=== PATIENT | female | born 1985 | race Caucasian/White ===

== ENCOUNTER 2019-05-30 18:21 | Emergency (ER) | payer SELFPAY ==
[~2019-05-30] VITALS: Ht 157.5 cm; Wt 79.4 kg
[2019-05-30] MEDS ORDERED: PANTOPRAZOLE 40 MG 10ML VIAL IV ONE (19:39)
[2019-05-30] MEDS ORDERED: MORPHINE SULFATE 2 MG/ML SYR 1ML IV ONE (19:39)
[2019-05-30] MEDS ORDERED: ONDANSETRON HCL INJ 2MG/ML 2ML 2 MG/ML VIAL IV ONE (19:39)
[2019-05-30 19:40] LABS: BILIRUBIN,URINE NEGATIVE (NEGATIVE); CLARITY,URINE SL CLOUDY (CLEAR); COLOR,URINE YELLOW (YELLOW); KETONES,URINE NEGATIVE (NEGATIVE); LEUKOCYTE ESTERASE ,URINE TRACE (NEGATIVE); NITRITE,URINE NEGATIVE (NEGATIVE); PROTEIN,URINE DIPSTICK NEGATIVE (NEGATIVE); URINE UROBILINOGEN 0.2 mg/dL (0.2 - 1)
[2019-05-30 19:49] LABS: PREGNANCY TEST, URINE NEGATIVE (NEGATIVE)
[2019-05-30 19:50] LABS: BASOPHILS # (AUTO) 0.1 (0.0-0.1); BASOPHILS % 0.4 % (0.0-1.0); EOSINOPHILS # (AUTO) 0.6 (0.0-0.4); EOSINOPHILS % 5.4 % (0.0-6.0); HEMATOCRIT 36.2 % (34.2-44.1); HEMOGLOBIN 11.5 g/dL (12.0-16.0); LYMPHOCYTES # (AUTO) 2.6 (1.0-3.2); LYMPHOCYTES % 22.1 % (18.0-39.1); MEAN CORPUSCULAR HEMOGLOBIN 27.4 pg (28-32); MEAN CORPUSCULAR HGB CONC 31.8 g/dL (31-35); MEAN CORPUSCULAR VOLUME 86.4 fL (81-99); MONOCYTES % 8.8 % (4.4-11.3); NEUTROPHILS # (AUTO) 7.4 (2.1-6.9); NEUTROPHILS % 62.9 % (38.7-80.0); PLATELET COUNT 354 x10e3/uL (140-360); RED BLOOD COUNT 4.19 x10e6/uL (3.6-5.1); RED CELL DISTRIBUTION WIDTH 14.3 % (11.7-14.4)
[2019-05-30 20:00] LABS: INR 0.91; PROTHROMBIN TIME 12.7 seconds (11.9-14.5)
[2019-05-30 20:01] LABS: PARTIAL THROMBOPLASTIN TIME 37.6 seconds (23.8-35.5)
[2019-05-30 20:06] LABS: MAGNESIUM 2.2 MG/DL (1.3-2.1)
[2019-05-30 20:08] LABS: ALANINE AMINOTRANSFERASE 11 IU/L (0-55); ALBUMIN 3.5 g/dL (3.5-5.0); ALBUMIN/GLOBULIN RATIO 0.9 (0.8-2.0); ALKALINE PHOSPHATASE 76 IU/L (40-150); ANION GAP 11.7 mmol/L (8-16); BLOOD UREA NITROGEN 14 mg/dL (7-26); BUN/CREATININE RATIO 21 (6-25); CALCIUM 9.3 mg/dL (8.4-10.2); CARBON DIOXIDE 26 mmol/L (22-29); CHLORIDE 104 mmol/L (98-107); CREATININE, SERUM 0.66 mg/dL (0.57-1.11); EST GLOMERULAR FILTRATION RATE > 60 ML/MIN (60-); GLUCOSE 82 mg/dL (74-118); POTASSIUM 3.7 mmol/L (3.5-5.1); SODIUM 138 mmol/L (136-145)
[2019-05-30] MEDS ORDERED: PANTOPRAZOLE 40 MG 10ML VIAL ONE (20:19)
[2019-05-30 20:22] LABS: BACTERIA,URINE FEW /HPF; EPITHELIAL CELLS,URINE MODERATE /LPF
--- NOTE | 2019-05-30 21:36 | Diagnostic Imaging Report ---
EXAMINATION: PA and lateral views of the chest. COMPARISON: None CLINICAL HISTORY: Coughing up blood when blowing nose, DISCUSSION: Lines/tubes: None. Lungs: Lungs are well-inflated. Questionable opacity in the retrosternal space versus summation of vessel shadows, noted on the lateral view. Lungs are otherwise clear. Pleura: There is no pleural effusion or pneumothorax. Heart and mediastinum: Cardiomediastinal silhouette is unremarkable. Pulmonary vasculature is normal. Bones and soft tissues: No acute bony abnormalities. IMPRESSION: Questionable opacity in the retrosternal space versus summation of vessels shadows seen on the lateral view. Pneumonia is a diagnostic consideration in the appropriate clinical setting. Signed by: Dr. Mauro Kennedy M.D. on 05/30/2019 9:33 PM
--- NOTE | 2019-05-30 21:42 | Diagnostic Imaging Report ---
EXAMINATION: CT of the abdomen and pelvis with contrast. TECHNIQUE: Spiral CT images of the abdomen and pelvis were performed from the lung bases to the lesser trochanters after the intravenous administration of 100 cc of Isovue 370 and the oral administration of water. Coronal and sagittal reformatted images were obtained. COMPARISON: None. CLINICAL HISTORY:Right lower quadrant abdominal pain for several weeks DISCUSSION: ABDOMEN/PELVIS: LOWER THORAX:Unremarkable. HEPATOBILIARY: No focal hepatic lesions. Mild dilation of the central intrahepatic bile ducts and common bile duct, which measures approximately 10 mm at the farooq hepatis. No radiopaque intraluminal filling defects. GALLBLADDER: Cholecystectomy clips SPLEEN: No splenomegaly. PANCREAS: No focal masses or ductal dilatation. ADRENALS: No adrenal nodules. KIDNEYS/URETERS: No hydronephrosis, stones, or solid mass lesions. PELVIC ORGANS/BLADDER: Bladder is unremarkable. Uterus is unremarkable. No adnexal masses. Bilateral tubal ligation clips PERITONEUM/RETROPERITONEUM: No free air or fluid. LYMPH NODES: No intra-abdominal, retroperitoneal, pelvic or inguinal lymphadenopathy. VESSELS: The celiac trunk,superior and inferior mesenteric and bilateral renal arteries are patent The portal, superior mesenteric and splenic veins are patent. GI TRACT: No bowel dilation or evidence of obstruction. No pericecal or periappendiceal inflammatory changes. Appendix is well identified and normal in caliber. BONES AND SOFT TISSUE: No bony destructive lesions. No soft tissue abnormalities. IMPRESSION: 1. No acute abdominal pelvic abnormalities. Specifically, no acute abnormal findings in the right lower quadrant to explain the patient's pain. 2. Mild dilation of the central intrahepatic bile ducts and common bile duct, likely reflecting post cholecystectomy status. Signed by: Dr. Mauro Kennedy M.D. on 05/30/2019 9:39 PM
[2019-05-31] MEDS ORDERED: IOPAMIDOL 370 MG/ML 200 ML INFUS..BTL INJ ONE (06:36)
[2019-05-31] MEDS ORDERED: SODIUM CHLORIDE 0.9% 50ML 50 ML ONE (06:36)
== END 2019-05-30 22:51 | disposition home or self-care (01) ==
LOC: ER 18:21
DX: R10.84 Generalized abdominal pain (principal); R11.0 Nausea; R05 Cough; J15.9 Unspecified bacterial pneumonia; K29.00 Acute gastritis without bleeding; N30.91 Cystitis, unspecified with hematuria
CPT/HCPCS: 36415; 71046; 74177; 80053; 81001; 81025; 82150; 83690; 83735; 85025; 85610; 85730; 99284; C9113; J2270; J2405

== ENCOUNTER 2019-11-09 21:24 | Emergency (ER) | payer OTHER ==
[~2019-11-09] VITALS: Ht 157.5 cm; Wt 79.4 kg
--- OUTSIDE RECORDS SUMMARY | 2019-11-09 21:26 | XMS REPORT ---
Author Author [facility] Address Unknown Phone Unavailable Care Team Providers Care Hedis Abstractor Name Role Phone Lori RACHEL Unavailable Unavailable Problems This patient has no known problems. Allergies, Adverse Reactions, Alerts This patient has no known allergies or adverse reactions. Medications This patient has no known medications. Results Test Description Test Time Test Comments Text Results Atomic Results Result Comments CT ABDOMEN/PELVIS W 2019-05-30 21:34:00 [place] [address] Patient Name: RADHA MOCK MR #: [id number] : 1985 Age/Sex: 33/F Req #: [id number] Adm Physician: Ordered by: MANE RACHEL MD Report #: [id number] Location: ER Room/Bed: Procedure: [id number] CT/CT ABDOMEN/PELVIS W Exam Date: 05/30/19 Exam Time: 2050 REPORT STATUS: Signed EXAMINATION: CT of the abdomen and pelvis with contras t. TECHNIQUE: Spiral CT images of the abdomen and pelvis were performed from the lung bases to the lesser trochanters after the intravenous administration of 100 cc of Isovue 370 and the oral administration of water. Coronal and sagittal reformatted images were obtained. COMPARISON: None. CLINICAL HISTORY:Right lower quadrant abdominal pain for several weeks DISCUSSION: ABDOMEN/PELVIS: LOWER THORAX:Unremarkable. HEPATOBILIARY: No focal hepatic lesions. Mild dilation of the central intrahepatic bile ducts and common bile duct, which measures approximately 10 mm at the farooq hepatis. No radiopaque intraluminal filling defects. GALLBLADDER: Cholecystectomy clips SPLEEN: No splenomegaly. PANCREAS: No focal masses or ductal dilatation. ADRENALS: No adrenal nodules. KIDNEYS/URETERS: No hydronephrosis, stones, or solid mass lesions. PELVIC ORGANS/BLADDER: Bladder is unremarkable. Uterus is unremarkable. No adnexal masses. Bilateral tubal ligation clips PERITONEUM/RETROPERITONEUM: No free air or fluid. LYMPH NODES: No intra-abdominal, retroperitoneal, pelvic or inguinal lymphadenopathy. VESSELS: The celiac trunk,superior and inferior mesenteric and bilateral renal arteries are patent The portal, superior mesenteric and splenic veins are patent. GI TRACT: No bowel dilation or evidence of obstruction. No pericecal or periappendiceal inflammatory changes. Appendix is well identified and normal in caliber. BONES AND SOFT TISSUE: No bony destructive lesions. No soft tissue abnormalities. IMPRESSION: 1. No acute abdominal pelvic abnormalities. Specifically, no acute abnormal findings in the right lower quadrant to explain the patient's pain. 2. Mild dilation of the central intrahepatic bile ducts and common bile duct, likely reflecting post cholecystectomy status. Signed by: Dr. Joyce Kennedy M.D. on 05/30/2019 9:39 PM Dictated By: JOYCE KENNEDY MD 38 Transcribed By: ELENI on 05/30/192138 COPY TO: MANE RACHEL MD CHEST 2 VIEWS 2019-05-30 21:31:00 [place] [address] Patient Name: RADHA MOCK MR #: [id number] : 1985 Age/Sex: 33/F Req #: [id number] Adm Physician: Ordered by: MANE RACHEL MD Report #: [id number] Location: ER Room/Bed: Procedure: [id number] DX/CHEST 2 VIEWS Exam Date: 05/30/19 Exam Time: 2057 REPORT STATUS: Signed EXAMINATION: PA and lateral views of the chest. COMP ARISON: None CLINICAL HISTORY: Coughing up blood when blowing nose, DISCUSSION: Lines/tubes: None. Lungs: Lungs are well-inflated. Questionable opacity in the retrosternal space versus summation of vessel shadows, noted on the lateral view. Lungs are otherwise clear. Pleura: There is no pleural effusion or pneumothorax. Heart and mediastinum: Cardiomediastinal silhouette is unremarkable. Pulmonary vasculature is normal. Bones and soft tissues: No acute bony abnormalities. IMPRESSION: Questionable opacity in the retrosternal space versus summation of vessels shadows seen on the lateral view. Pneumonia is a diagnostic consideration in the appropriate clinical setting. Signed by: Dr. Joyce Kennedy M.D. on 05/30/2019 9:33 PM Dictated By: JOYCE KENNEDY MD 32 Transcribed By: ELENI on 05/30/192132 COPY TO: MANE RACHEL MD
[2019-11-09 21:51] LABS: BASOPHILS # (AUTO) 0.1 (0.0-0.1); BASOPHILS % 0.5 % (0.0-1.0); EOSINOPHILS # (AUTO) 0.5 (0.0-0.4); EOSINOPHILS % 4.6 % (0.0-6.0); HEMOGLOBIN 11.2 g/dL (12.0-16.0); LYMPHOCYTES # (AUTO) 2.7 (1.0-3.2); LYMPHOCYTES % 27.8 % (18.0-39.1); MEAN CORPUSCULAR HEMOGLOBIN 27.9 pg (28-32); MEAN CORPUSCULAR VOLUME 87.1 fL (81-99); MONOCYTES # (AUTO) 0.8 (0.2-0.8); MONOCYTES % 8.3 % (4.4-11.3); NEUTROPHILS # (AUTO) 5.7 (2.1-6.9); NEUTROPHILS % 58.6 % (38.7-80.0); PLATELET COUNT 330 x10e3/uL (140-360); RED BLOOD COUNT 4.02 x10e6/uL (3.6-5.1); RED CELL DISTRIBUTION WIDTH 13.5 % (11.7-14.4)
[2019-11-09 22:09] LABS: ALANINE AMINOTRANSFERASE 14 IU/L (0-55); ALBUMIN 3.2 g/dL (3.5-5.0); ALKALINE PHOSPHATASE 65 IU/L (40-150); ANION GAP 10.1 mmol/L (8-16); BLOOD UREA NITROGEN 10 mg/dL (7-26); BUN/CREATININE RATIO 15 (6-25); CALCIUM 8.2 mg/dL (8.4-10.2); CARBON DIOXIDE 27 mmol/L (22-29); CHLORIDE 106 mmol/L (98-107); CREATINE KINASE 58 IU/L (29-168); CREATININE, SERUM 0.68 mg/dL (0.57-1.11); EST GLOMERULAR FILTRATION RATE > 60 ML/MIN (60-); GLUCOSE 100 mg/dL (74-118); POTASSIUM 3.1 mmol/L (3.5-5.1); SODIUM 140 mmol/L (136-145)
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
--- NOTE | 2019-11-09 22:59 | Diagnostic Imaging Report ---
EXAMINATION: CT of the chest with contrast, PE protocol. TECHNIQUE: Spiral CT images of the chest were performed from the lung apices through the level of the adrenal glands after the IV administration of 100 cc of Isovue 370. Thin section reconstructions were obtained with special concentration on the pulmonary arteries. COMPARISON: Chest radiograph 05/30/2019 CLINICAL HISTORY:Shortness of breath, chest pain, patient reports history of pulmonary embolus DISCUSSION: Vasculature: [<The main pulmonary artery, right and left pulmonary arteries, and their visualized lobar and segmental branches are patent, without filling defect. The pulmonary outflow tract is of normal caliber.>] Lungs: The lungs are clear, without consolidation, mass lesion, or bronchiectasis. Airways: <The major airways are clear.> Pleura: <There is no evidence of pleural effusion or pneumothorax.> Heart and mediastinum: Visualized portions of the thyroid are normal. No ectasia or aneurysmal dilatation of the thoracic aorta. Heart size is normal. No pericardial effusion. No axillary, hilar, or mediastinal lymphadenopathy. Abdomen: Visualized portions of the liver, spleen, pancreas, and left kidney are unremarkable. Bones and soft tissues: <The thoracic skeleton is normal for age. The soft tissues are unremarkable.> IMPRESSION: <No pulmonary embolus to the level of the segmental branch pulmonary arteries.> Signed by: Dr. Luis Choi M.D. on 11/09/2019 10:56 PM
[2019-11-09] MEDS ORDERED: SODIUM CHLORIDE 0.9% 50ML 50 ML ONE (23:09)
[2019-11-09] MEDS ORDERED: IOPAMIDOL 370 MG/ML 200 ML INFUS..BTL INJ ONE (23:09)
[2019-11-09 23:43] LABS: AMPHETAMINES SCREEN,URINE POSITIVE (NEGATIVE); BENZODIAZEPINES SCREEN,URINE NEGATIVE (NEGATIVE); PHENCYCLIDINE SCREEN,URINE NEGATIVE (NEGATIVE)
[2019-11-10 00:29] VITALS: BP 141/87
== END 2019-11-10 00:42 | disposition home or self-care (01) ==
LOC: ER 21:24
DX: R07.89 Other chest pain (principal); F15.14 Other stimulant abuse with stimulant-induced mood disorder
CPT/HCPCS: 36415; 71260; 80053; 80307; 82550; 82553; 84484; 84702; 85025; 93005; 99284; Q9967